=== PATIENT | female | born 1975 | race Hispanic/Latino ===

== ENCOUNTER 2017-08-01 06:16 | Emergency (ER) | payer OTHER ==
[2017-08-01] MEDS ORDERED: ONDANSETRON ODT 4 MG TAB ONE (06:33)
[2017-08-01 06:55] LABS: APPEARANCE,URINE Cloudy (CLEAR); BILIRUBIN,URINE Small (NEGATIVE); COLOR,URINE Dark Yellow (YELLOW); GLUCOSE, URINE (UA) Negative (NEGATIVE); KETONES,URINE 15 mg/dL (NEGATIVE); LEUKOCYTE ESTERASE ,URINE Trace (NEGATIVE); NITRATE,URINE Positive (NEGATIVE); OCCULT BLOOD,URINE Large (NEGATIVE); PH,URINE 5.5 (5.0-8.0); PROTEIN,URINE 300 (NEGATIVE)
[2017-08-01 06:59] LABS: RAPID GROUP A STREP POSITIVE (NEGATIVE)
[2017-08-01] MEDS ORDERED: SODIUM CHLORIDE 0.9% 1000ML 1,000 ML IV ONE (07:18)
[2017-08-01] MEDS ORDERED: CEFTRIAXONE SODIUM 1 GM ONE (07:18)
[2017-08-01] MEDS ORDERED: AZITHROMYCIN 250 MG TABLET PO ONE (07:19)
[2017-08-01 07:28] LABS: BACTERIA,URINE Rare /HPF (None Seen); MUCUS,URINE Rare LPF (None Seen); RBC,URINE TNTC /HPF (0-1); SQUAMOUS EPITHELIAL CELL,UR Few /LPF (0-2)
[2017-08-01 07:29] LABS: HCG,QUAL RESULT NEGATIVE (NEGATIVE)
== END 2017-08-01 09:06 | disposition home or self-care (01) ==
LOC: EDH 06:16
DX: J02.0 Streptococcal pharyngitis (principal); E86.0 Dehydration; E11.9 Type 2 diabetes mellitus without complications
CPT/HCPCS: 81001; 81025; 87804 ×2; 87880; 96361; 96374; 99284; J0696; J7030

== ENCOUNTER 2019-08-30 14:11 | Emergency (ER) | payer SELFPAY ==
[2019-08-30] MEDS ORDERED: 0.9% SODIUM CHLORIDE 1000 ML IV BAG IV ONE (14:39)
[2019-08-30 14:48] LABS: BASOPHILS % (AUTO) 0.3 % (0.0-5.0); EOSINOPHILS % (AUTO) 0.4 % (0.0-8.0); HEMATOCRIT 41.6 % (36-48); LYMPHOCYTES % (AUTO) 29.8 % (21.0-51.0); MEAN CORPUSCULAR HEMOGLOBIN 25.9 pg (27.0-33.0); MEAN CORPUSCULAR HGB CONC 32.9 g/dL (32.0-36.0); MEAN CORPUSCULAR VOLUME 78.6 fL (79-99); MONOCYTES % (AUTO) 4.6 % (3.0-13.0); NEUTROPHILS % (AUTO) 64.5 % (40.0-77.0); PLATELET COUNT (AUTO) 260 K/uL (130-400); RED BLOOD CELL COUNT(AUTO) 5.29 MIL/uL (4.00-5.50); RED CELL DISTRIBUTION WIDTH 12.6 % (11.0-15.5)
[2019-08-30 14:54] LABS: APPEARANCE,URINE Clear (CLEAR); BILIRUBIN,URINE Negative (NEGATIVE); COLOR,URINE Yellow (YELLOW); GLUCOSE, URINE (UA) >=1000 mg/dL (NEGATIVE); KETONES,URINE 15 mg/dL (NEGATIVE); LEUKOCYTE ESTERASE ,URINE Negative (NEGATIVE); NITRATE,URINE Negative (NEGATIVE); OCCULT BLOOD,URINE Negative (NEGATIVE); PROTEIN,URINE Trace mg/dL (NEGATIVE); UROBILINOGEN,URINE 0.2 mg/dL (0.2-1.0)
[2019-08-30 15:05] LABS: INR 0.95 (0.85-1.15); PARTIAL THROMBOPLASTIN TIME 25.7 SEC (26.3-35.5); PROTHROMBIN TIME 10.3 SEC (9.6-11.6)
[2019-08-30 15:07] LABS: ALBUMIN 3.3 g/dL (3.5-5.0); BILIRUBIN,TOTAL 0.5 mg/dL (0.2-1.0); CREATININE 0.8 mg/dL (0.5-1.5); POTASSIUM 3.9 mmol/L (3.5-5.1); TOTAL PROTEIN, SERUM 7.7 g/dL (6.0-8.3)
[2019-08-30 15:12] LABS: BACTERIA,URINE Moderate /HPF (None Seen); RBC,URINE 0-1 /HPF (0-1)
[2019-08-30 15:13] LABS: SQUAMOUS EPITHELIAL CELL,UR 0-2 /HPF (0-2); YEAST,URINE BUDDING Few /HPF (None Seen)
[2019-08-30] MEDS ORDERED: INSULIN HUMULIN R 100 UNIT/ML 3ML ONE (15:33)
== END 2019-08-30 16:18 | disposition home or self-care (01) ==
LOC: EDH 14:11
DX: R73.9 Hyperglycemia, unspecified (principal)
CPT/HCPCS: 36415; 80053; 81001; 82009; 82550; 82948 ×2; 84484; 85025; 85610; 85730; 93005; 96361; 96374; 99284; J1815; J7030

== ENCOUNTER 2020-07-27 00:04 | Emergency (ER) | payer OTHER ==
[2020-07-27] MEDS ORDERED: IBUPROFEN 600 MG TABLET ONE (00:51)
[2020-07-27] MEDS ORDERED: ACETAMINOPHEN 325 MG TAB ONE (00:51)
[2020-07-27] MEDS ORDERED: METHYLPREDNISOLONE SOD SUCC 40MG/ML 1ML ONE (02:28)
[2020-07-27] MEDS ORDERED: AZITHROMYCIN 250 MG TABLET PO ONE (02:29)
== END 2020-07-27 05:41 | disposition home or self-care (01) ==
LOC: EDH 00:04
DX: U07.1 COVID-19 (principal); J40 Bronchitis, not specified as acute or chronic; Z98.890 Other specified postprocedural states
CPT/HCPCS: 71045; 96372; 99284; J2920

== ENCOUNTER 2021-08-29 10:37 | Inpatient (IN) | payer OTHER ==
[~2021-08-29] VITALS: Ht 165.1 cm; Wt 108.9 kg
[2021-08-29] MEDS ORDERED: ONDANSETRON 4MG INJ IVP SCH ×2 (11:00→12:30)
[2021-08-29] MEDS ORDERED: 0.9%NACL 1000ML 1,000 ML IV SCH (11:00)
[2021-08-29 11:11] LABS: BASOPHILS % (AUTO) 0.2 % (0.0-5.0); EOSINOPHILS % (AUTO) 0.4 % (0.0-8.0); HEMATOCRIT 44.3 % (36-48); LYMPHOCYTES % (AUTO) 23.7 % (21.0-51.0); MEAN CORPUSCULAR HEMOGLOBIN 26.5 pg (27.0-33.0); MEAN CORPUSCULAR HGB CONC 33.9 g/dL (32.0-36.0); MEAN CORPUSCULAR VOLUME 78.4 fL (79-99); MONOCYTES % (AUTO) 5.2 % (3.0-13.0); PLATELET COUNT (AUTO) 313 K/uL (130-400); RED BLOOD CELL COUNT(AUTO) 5.65 MIL/uL (4.00-5.50); RED CELL DISTRIBUTION WIDTH 12.4 % (11.0-15.5); WHITE BLOOD COUNT (AUTO) 9.8 K/uL (4.8-10.8)
[2021-08-29 11:13] LABS: APPEARANCE,URINE Clear (CLEAR); BILIRUBIN,URINE Negative (NEGATIVE); COLOR,URINE Yellow (YELLOW); GLUCOSE, URINE (UA) >=1000 mg/dL (NEGATIVE); KETONES,URINE 40 mg/dL (NEGATIVE); LEUKOCYTE ESTERASE ,URINE Negative (NEGATIVE); NITRATE,URINE Negative (NEGATIVE); OCCULT BLOOD,URINE Trace (NEGATIVE); PROTEIN,URINE 300 mg/dL (NEGATIVE); UROBILINOGEN,URINE 0.2 mg/dL (0.2-1.0)
[2021-08-29 11:20] LABS: AMPHET/METH SCREEN,URINE NEGATIVE (NEGATIVE); BARBITURATE SCREEN, URINE NEGATIVE (NEGATIVE); BENZODIAZEPINES SCREEN,URINE NEGATIVE (NEGATIVE); CANNABINOID SCREEN,URINE NEGATIVE (NEGATIVE); COCAINE SCREEN,URINE NEGATIVE (NEGATIVE); OPIATE SCREEN,URINE NEGATIVE (NEGATIVE); PHENCYCLIDINE SCREEN,URINE NEGATIVE (NEGATIVE)
[2021-08-29 11:31] LABS: ALBUMIN 3.4 g/dL (3.5-5.0); BILIRUBIN,TOTAL 0.5 mg/dL (0.2-1.0); CREATININE 0.7 mg/dL (0.5-1.5); POTASSIUM 3.5 mmol/L (3.5-5.1); TOTAL PROTEIN, SERUM 7.9 g/dL (6.0-8.3)
[2021-08-29 12:00] LABS: BACTERIA,URINE Few /HPF (None Seen); RBC,URINE 0-1 /HPF (0-1); WBC,URINE 0-1 /HPF (0-1)
[2021-08-29] MEDS ORDERED: MORPHINE 2 MG SYG IVP SCH (12:30)
[2021-08-29] MEDS ORDERED: IOHEXOL-350 75 ML VIAL IV ONE (12:42)
[2021-08-29] MEDS ORDERED: MORPHINE 2 MG SYG IV PRN (13:00)
[2021-08-29] MEDS ORDERED: ACETAMINOPHEN 325 MG TAB PO PRN (13:00)
[2021-08-29] MEDS ORDERED: ONDANSETRON 4MG INJ IV PRN (13:00)
[2021-08-29] MEDS ORDERED: MORPHINE 4 MG SYG IV PRN (13:00)
[2021-08-29] MEDS ORDERED: METOPROLOL TARTRATE 1 MG/ML 5ML VIAL IV PRN (13:30)
[2021-08-29] MEDS ORDERED: METOPROLOL TARTRATE 1 MG/ML 5ML VIAL IV ONE (13:30)
[2021-08-29] MEDS: 0.9%NACL 1000ML 1,000 ML IV SCH ×2 (13:58→20:39)
[2021-08-29 15:48] LABS: HEMOGLOBIN A1C 12.1 % (4.0-6.0)
[2021-08-29 17:09] LABS: CREATININE 0.7 mg/dL (0.5-1.5); POTASSIUM 4.1 mmol/L (3.5-5.1)
[2021-08-29] MEDS ORDERED: INSULIN HUMULIN R 100 UNIT/ML 3ML SQ SCH (18:00)
[2021-08-29] MEDS: INSULIN HUMULIN R 100 UNIT/ML 3ML SQ SCH (18:15)
[2021-08-29] MEDS: ACETAMINOPHEN 325 MG TAB PO PRN (20:37)
[2021-08-29 21:00] VITALS: BP 172/99
[2021-08-29] MEDS: ATORVASTATIN 20 MG TABLET PO SCH (21:37)
[2021-08-29] MEDS: FISH OIL 1000 MG/CAP PO SCH (21:37)
[2021-08-29] MEDS: FAMOTIDINE 20MG VIAL IV SCH (21:38)
[2021-08-30] VITALS: BP 142/77
[2021-08-30] MEDS: 0.9%NACL 1000ML 1,000 ML IV SCH ×4 (01:28→23:09)
[2021-08-30] MEDS: INSULIN HUMULIN R 100 UNIT/ML 3ML SQ SCH ×4 (01:31→19:03)
[2021-08-30 04:00] VITALS: BP 142/82
[2021-08-30 05:33] LABS: BASOPHILS % (AUTO) 0.2 % (0.0-5.0); EOSINOPHILS % (AUTO) 0.7 % (0.0-8.0); HEMATOCRIT 39.5 % (36-48); LYMPHOCYTES % (AUTO) 35.9 % (21.0-51.0); MEAN CORPUSCULAR HEMOGLOBIN 26.4 pg (27.0-33.0); MEAN CORPUSCULAR HGB CONC 33.2 g/dL (32.0-36.0); MEAN CORPUSCULAR VOLUME 79.5 fL (79-99); MONOCYTES % (AUTO) 7.1 % (3.0-13.0); NEUTROPHILS % (AUTO) 55.8 % (40.0-77.0); PLATELET COUNT (AUTO) 280 K/uL (130-400); RED BLOOD CELL COUNT(AUTO) 4.97 MIL/uL (4.00-5.50); RED CELL DISTRIBUTION WIDTH 12.6 % (11.0-15.5); WHITE BLOOD COUNT (AUTO) 9.6 K/uL (4.8-10.8)
[2021-08-30 05:51] LABS: ALBUMIN 2.7 g/dL (3.5-5.0); BILIRUBIN,TOTAL 0.4 mg/dL (0.2-1.0); CREATININE 0.6 mg/dL (0.5-1.5); POTASSIUM 3.1 mmol/L (3.5-5.1); TOTAL PROTEIN, SERUM 6.6 g/dL (6.0-8.3)
[2021-08-30 08:00] VITALS: BP 137/65
[2021-08-30] MEDS: FAMOTIDINE 20MG VIAL IV SCH ×2 (08:50→20:21)
[2021-08-30] MEDS: FISH OIL 1000 MG/CAP PO SCH ×2 (08:50→20:21)
[2021-08-30] MEDS: LISINOPRIL 10 MG TABLET PO SCH (08:50)
[2021-08-30 12:00] VITALS: BP 129/81
[2021-08-30] MEDS ORDERED: KCL 20 MEQ ERTAB PO SCH (12:00)
[2021-08-30 16:00] VITALS: BP 119/71
[2021-08-30 20:00] VITALS: BP 129/74
[2021-08-30] MEDS: ATORVASTATIN 20 MG TABLET PO SCH (20:21)
[2021-08-31] VITALS: BP 142/81
[2021-08-31] MEDS: INSULIN HUMULIN R 100 UNIT/ML 3ML SQ SCH ×2 (01:08→06:29)
[2021-08-31] MEDS: ACETAMINOPHEN 325 MG TAB PO PRN (01:13)
[2021-08-31 04:00] VITALS: BP 105/59
[2021-08-31 05:02] LABS: HEMATOCRIT 37.1 % (36-48); MEAN CORPUSCULAR HGB CONC 33.2 g/dL (32.0-36.0); MEAN CORPUSCULAR VOLUME 81.5 fL (79-99); RED BLOOD CELL COUNT(AUTO) 4.55 MIL/uL (4.00-5.50); RED CELL DISTRIBUTION WIDTH 12.9 % (11.0-15.5); WHITE BLOOD COUNT (AUTO) 8.7 K/uL (4.8-10.8)
[2021-08-31] MEDS: 0.9%NACL 1000ML 1,000 ML IV SCH (05:13)
[2021-08-31 05:34] LABS: ALBUMIN 2.5 g/dL (3.5-5.0); BILIRUBIN,TOTAL 0.3 mg/dL (0.2-1.0); CREATININE 0.6 mg/dL (0.5-1.5); POTASSIUM 3.2 mmol/L (3.5-5.1); TOTAL PROTEIN, SERUM 6.2 g/dL (6.0-8.3)
[2021-08-31 07:30] VITALS: BP 152/80
[2021-08-31] MEDS: FAMOTIDINE 20MG VIAL IV SCH (10:15)
[2021-08-31] MEDS: FISH OIL 1000 MG/CAP PO SCH (10:15)
[2021-08-31] MEDS: LISINOPRIL 10 MG TABLET PO SCH (10:16)
[2021-08-31 11:00] VITALS: BP 149/96
[2021-08-31] MEDS ORDERED: POTASSIUM CHLORIDE 10% ELIXIR 20 MEQ/15 ML UDCUP PO PRN (11:00)
[2021-08-31] MEDS ORDERED: LIDOCAINE HCL-MPF 1% 2ML VIAL IV PRN (11:00)
[2021-08-31] MEDS ORDERED: KCL 20 MEQ ERTAB PO PRN (11:00)
[2021-08-31] MEDS ORDERED: POTASSIUM CHLORIDE 20MEQ/100ML 100 ML IV PRN (11:00)
== END 2021-08-31 13:13 | disposition home or self-care (01) | DRG 440 ==
LOC: EDH 10:37 → EDHIP 10:38 → 3DH 21:00
PROVIDERS: ADMIT Internal Medicine; ATTEND Internal Medicine
DX: K85.90 Acute pancreatitis without necrosis or infection, unspecified (principal); I16.0 Hypertensive urgency; E11.65 Type 2 diabetes mellitus with hyperglycemia; E66.01 Morbid (severe) obesity due to excess calories; E78.1 Pure hyperglyceridemia; I10 Essential (primary) hypertension; K76.0 Fatty (change of) liver, not elsewhere classified; Z68.39 Body mass index [BMI] 39.0-39.9, adult; Z90.49 Acquired absence of other specified parts of digestive tract; Z98.891 History of uterine scar from previous surgery
CPT/HCPCS: 36415; 74177; 76700; 80048; 80053; 80305; 81001; 81025; 82150; 82948; 83036; 83690; 84145; 84478; 84484; 85025; 85027; 85651; 86140; 93005; G0378; J1815; J2405; J3490; J7030; Q9967

== ENCOUNTER 2022-04-22 11:15 | Emergency (ER) | payer MEDICAID ==
[~2022-04-22] VITALS: Ht 165.1 cm; Wt 108.9 kg
[2022-04-22 11:16] VITALS: BP 165/102
[2022-04-22 12:00] LABS: BASOPHILS % (AUTO) 0.3 % (0.0-5.0); EOSINOPHILS % (AUTO) 0.4 % (0.0-8.0); HEMATOCRIT 40.6 % (36-48); LYMPHOCYTES % (AUTO) 25.8 % (21.0-51.0); MEAN CORPUSCULAR HEMOGLOBIN 26.7 pg (27.0-33.0); MEAN CORPUSCULAR HGB CONC 33.7 g/dL (32.0-36.0); MEAN CORPUSCULAR VOLUME 79.1 fL (79-99); MONOCYTES % (AUTO) 5.3 % (3.0-13.0); PLATELET COUNT (AUTO) 354 K/uL (130-400); RED BLOOD CELL COUNT(AUTO) 5.13 MIL/uL (4.00-5.50); RED CELL DISTRIBUTION WIDTH 12.5 % (11.0-15.5); WHITE BLOOD COUNT (AUTO) 11.9 K/uL (4.8-10.8)
[2022-04-22 12:09] LABS: APPEARANCE,URINE CLOUDY (CLEAR); BILIRUBIN,URINE NEGATIVE (NEGATIVE); COLOR,URINE LIGHT-YELLOW (YELLOW); GLUCOSE, URINE (UA) 70 mg/dL (NEGATIVE); KETONES,URINE NEGATIVE (NEGATIVE); LEUKOCYTE ESTERASE ,URINE 500 Leu/uL (NEGATIVE); NITRATE,URINE 1+ (NEGATIVE); OCCULT BLOOD,URINE SMALL (NEGATIVE); PROTEIN,URINE 20 mg/dL (NEGATIVE); UROBILINOGEN,URINE 0.2 mg/dL (0.2-1.0)
[2022-04-22 12:11] LABS: CREATININE 0.7 mg/dL (0.5-1.5); POTASSIUM 4.3 mmol/L (3.5-5.1)
[2022-04-22 12:11] LABS: HCG,QUALITATIVE URINE NEGATIVE (NEGATIVE)
[2022-04-22 12:13] LABS: ALBUMIN 3.2 g/dL (3.5-5.0); TOTAL PROTEIN, SERUM 7.8 g/dL (6.0-8.3)
[2022-04-22 12:23] LABS: BACTERIA,URINE MANY /HPF (None Seen); MUCUS,URINE RARE LPF (None Seen); OTHER CASTS, URINE 1 /LPF (None Seen); SQUAMOUS EPITHELIAL CELL,UR FEW /HPF (0-2); WBC,URINE TNTC /HPF (0-1)
[2022-04-22] MEDS ORDERED: LIDOCAINE HCL 2% VISCOUS 15 ML UDCUP PO ONE (12:30)
[2022-04-22] MEDS ORDERED: FAMOTIDINE 20MG TAB PO ONE (12:30)
[2022-04-22] MEDS ORDERED: DICYCLOMINE HCL 10 MG/5 ML ML PO ONE (12:30)
[2022-04-22] MEDS ORDERED: ONDANSETRON 4MG TABLET PO ONE (12:30)
[2022-04-22] MEDS ORDERED: CEFTRIAXONE 1G VIAL IVP SCH (12:30)
[2022-04-22] MEDS ORDERED: MAG/ALUM/SIMETH 30 ML UDCUP PO ONE (12:30)
[2022-04-22] MEDS ORDERED: FAMO-136 PO (13:51)
[2022-04-22] MEDS ORDERED: CEFU500T67 PO (13:51)
[2022-04-22] MEDS ORDERED: DICY20TA2 PO (13:51)
== END 2022-04-22 14:12 | disposition home or self-care (01) ==
LOC: EDH 11:15
DX: K29.70 Gastritis, unspecified, without bleeding (principal); N39.0 Urinary tract infection, site not specified; E11.9 Type 2 diabetes mellitus without complications; E66.9 Obesity, unspecified; Z68.41 Body mass index [BMI] 40.0-44.9, adult; Z90.49 Acquired absence of other specified parts of digestive tract; Z98.890 Other specified postprocedural states
CPT/HCPCS: 99284; 74176; 96374; 82150; 80053; 83690; 85025; 87077; 87088; 87186; 81001; 81025; 36415; J0696